=== PATIENT | female | born 1990 | race Caucasian/White ===

== ENCOUNTER 2016-07-26 13:11 | Observation (INO) | payer OTHER ==
[~2016-07-26] VITALS: Ht 162.1 cm; Wt 58.2 kg
--- NOTE | ~2016-07-26 | HP ---
PAT[facility]: [facility] AGE: 26 Y [address] ROOM: [place] [address] LOCATION: GPED ADMIT DATE: 07/26/2016 History & Physical DISCHARGE DATE: FAMILY PHYSICIAN: Amanda Patel MD ATTENDING PHYSICIAN: Amanda Patel DATE OF SERVICE: CHIEF COMPLAINT: Urinary frequency, left-sided low back pain, fevers and chills. HISTORY OF PRESENT ILLNESS: The patient is a 26-year-old female, who presented to clinic on July 25, 2016 with symptoms of urinary frequency and left-sided low back pain. She had also had a low-grade temperature, but no chills at that time. She had had no nausea or vomiting. On exam, she had significant left-sided CVA tenderness. Temperature was 100. UA was markedly abnormal with 100 mg/dL protein, 15 mg/dL ketones, wbc greater than 100, rbc 10 to 20, and epithelial cells 5 to 10. Urine culture was obtained. She was given 1 g of IM Rocephin and started on p.o. Cipro 500 mg p.o. b.i.d. for 7 days. At that visit, she also indicated she had stopped her Synthroid several months ago, so it was restarted at 50 mcg per day, which was her previous dose. She returned to clinic at my request the following day, July 26, for re- examination. She indicated that she was feeling worse. She is now having fever up to 101.8, chills and nausea. No vomiting. She was not able to eat as she did not have much of an appetite. She still has significant left-sided CVA tenderness. PAST MEDICAL HISTORY: Hypothyroidism. PAST SURGICAL HISTORY: Appendectomy. MEDICATIONS: 1. Synthroid 50 mcg daily. 2. Cipro 500 mg p.o. b.i.d. ALLERGIES: NO KNOWN DRUG ALLERGIES. FAMILY HISTORY: Cancer in maternal grandfather and paternal grandfather and uncle. Heart disease on mom's side of the family. Hypertension in maternal grandmother, PATIENT'S NAME: SCOTT LOZANO [facility] AGE: 26 Y [address] ROOM: [place] [address] LOCATION: GPED ADMIT DATE: 07/26/2016 History & Physical DISCHARGE DATE: FAMILY PHYSICIAN: Amanda Patel MD ATTENDING PHYSICIAN: Amanda Patel paternal grandmother, and mother. 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 Denies any alcohol or drug use. She does smoke daily. REVIEW OF SYSTEMS: She admits to fatigue, fevers, chills, and night sweats. Denies any vision changes. She has had headaches, nasal congestion, nasal drainage, and sore throat. Denies any chest pain or shortness of breath. Has had a slight cough. Has had nausea, but no vomiting. Admits to urinary frequency, but denies urgency, dysuria, or urinary retention. Denies any new skin rashes or skin lesions. Denies any altered mental status. Admits to left-sided low back pain. PHYSICAL EXAMINATION: VITAL SIGNS: Blood pressure 122/60 and temperature 101.8. Weight 132 pounds 8 ounces, height 5 feet 5 inches. GENERAL: She is awake, alert, and oriented, but she appears as though she does not feel well. HEART: Regular rate and rhythm without murmur. LUNGS: Clear to auscultation throughout. No crackles or wheezing noted. ABDOMEN: Soft, nondistended. Bowel sounds are auscultated. She is tender to palpation in the suprapubic region. She has left-sided CVA tenderness. EXTREMITIES: No peripheral edema noted. HEENT: Head: Atraumatic, normocephalic. Eyes, conjunctivae clear. Ears: Both TMs visualized; right TM is red and has some bulging superiorly, but the left TM looks normal. No evidence of perforation of either TM. Nares show swollen, erythematous nasal mucosa with drainage bilaterally. No pain to palpation of the sinuses. Mouth: Mucous membranes moist. There is some postnasal drainage and cobblestoning noted on the posterior oropharynx. ASSESSMENT: Left-sided pyelonephritis. Worsening symptoms with attempted outpatient treatment with IM Rocephin and p.o. Cipro. We will admit for IV fluids as well as IV Cipro. We will have Zofran available as needed for nausea and vomiting. We will allow her to eat ad-eliazar. We will have Tylenol and ibuprofen available as needed for pain and fever. MD SHLOMO HOPE/clau PATIENT'S NAME: SCOTT LOZANO [facility] AGE: 26 Y [address] ROOM: [place] [address] LOCATION: ED ADMIT DATE: 07/26/2016 History & Physical DISCHARGE DATE: FAMILY PHYSICIAN: Amanda Patel MD ATTENDING PHYSICIAN: Amanda Patel /[id number] D: [id number] T: [id number] HISTORY & PHYSICAL
--- NOTE | ~2016-07-26 | DS ---
PATIENT'S NAME: SCOTT LOZANO [facility] AGE: 26 Y [address] ROOM: [address] [place], [place] [address] LOCATION: GPED ADMIT DATE: 07/26/2016 Discharge Summary DISCHARGE DATE: 07/28/2016 FAMILY PHYSICIAN: Abby Patel MD ATTENDING PHYSICIAN: Abby Patel ADMISSION DIAGNOSIS: Left-sided pyelonephritis. DISCHARGE DIAGNOSIS: Left-sided pyelonephritis, resolved. HOSPITAL COURSE: The patient is a 26-year-old, female who presented to clinic with left-sided pyelonephritis feeling on outpatient oral Cipro. She was admitted to the hospital on July 26, 2016. She was started on IV fluids and IV Cipro. Over the course of the next 2 days, she improved. Her temperature decreased to normal and she was afebrile for 24 hours prior to discharge. Her white blood cell count decreased to normal. Symptomatically, she is feeling much better and ready for discharge home. DISPOSITION: Discharge to home. DISCHARGE MEDICATIONS: 1. Levothyroxine 50 mcg p.o. daily. 2. Ciprofloxacin 500 mg p.o. b.i.d. for 7 more days. 3. Tylenol 975 mg p.o. every 6 hours p.r.n. pain and fever. FOLLOW UP: She is to follow up with myself at clinic in 2 to 3 weeks. ABBY PATEL MD KB/modl /[id number] d: [id number] t: 09/03/16 1848, DISCHARGE SUMMARY
[2016-07-26] MEDS ORDERED: LEVOTHROID (SY50 MCG PO (14:25)
[2016-07-26] MEDS ORDERED: TYLENOL325 MG PO (14:26)
[2016-07-26] MEDS ORDERED: CIPROFLOXACIN500 M1 PO (14:26)
[2016-07-26 15:18] LABS: BASOPHIL % 0.2 %; EOSINOPHIL % 0.1 %; HEMATOCRIT 40.5 % (33.0-46.0); HEMOGLOBIN 13.7 g/dL (11.0-15.0); IMMATURE GRANULOCYTE # 0.1 K/uL (0.0-0.3); IMMATURE GRANULOCYTE % 0.6 %; LYMPHOCYTE # 1.2 K/uL (0.8-4.0); LYMPHOCYTE % 7.1 %; MCH 32.8 pg (27.0-34.0); MCHC 33.8 gm/dL (32.0-36.5); MCV 96.9 fl (83.0-98.0); MONOCYTE # 1.4 K/uL (0.0-1.0); MONOCYTE % 8.3 %; MPV 8.9 fl (9.4-12.4); NEUTROPHIL # (ANC) 14.3 K/uL (1.8-7.8); NEUTROPHIL % 83.7 %; NRBC % 0 /100WBC (0-0.00); PLATELET COUNT 191 K/uL (150-450); RBC 4.18 M/uL (3.50-5.00); RDW-CV 13.2 % (11.9-14.6)
[2016-07-26 15:42] LABS: ANION GAP 12.5 (10.0-19.0); BLOOD UREA NITROGEN 10 mg/dL (6-24); CALCIUM 8.7 mg/dL (8.5-10.5); CHLORIDE 103 mMol/L (96-110); CO2 25 mMol/L (22-32); CREATININE 0.9 mg/dL (0.5-1.1); ESTIMATED GFR (MDRD EQUATION) > 60; POTASSIUM 3.5 mMol/L (3.7-5.1); SODIUM 137 mMol/L (135-145)
[2016-07-27 05:27] LABS: BASOPHIL % 0.3 %; EOSINOPHIL # 0.1 K/uL (0.0-0.5); HEMOGLOBIN 12.2 g/dL (11.0-15.0); IMMATURE GRANULOCYTE # 0.1 K/uL (0.0-0.3); IMMATURE GRANULOCYTE % 0.8 %; LYMPHOCYTE # 2.1 K/uL (0.8-4.0); LYMPHOCYTE % 15.3 %; MCH 32.8 pg (27.0-34.0); MCHC 33.9 gm/dL (32.0-36.5); MCV 96.8 fl (83.0-98.0); MONOCYTE # 1.4 K/uL (0.0-1.0); MONOCYTE % 10.5 %; MPV 9.2 fl (9.4-12.4); NEUTROPHIL # (ANC) 9.6 K/uL (1.8-7.8); NEUTROPHIL % 72.1 %; NRBC % 0 /100WBC (0-0.00); PLATELET COUNT 168 K/uL (150-450); RBC 3.72 M/uL (3.50-5.00); RDW-CV 13.3 % (11.9-14.6); WBC 13.4 K/uL (4.0-11.0)
[2016-07-27 05:42] LABS: ANION GAP 10.1 (10.0-19.0); BLOOD UREA NITROGEN 8 mg/dL (6-24); CHLORIDE 107 mMol/L (96-110); CO2 26 mMol/L (22-32); CREATININE 0.8 mg/dL (0.5-1.1); ESTIMATED GFR (MDRD EQUATION) > 60; POTASSIUM 4.1 mMol/L (3.7-5.1); SODIUM 139 mMol/L (135-145)
== END 2016-07-28 13:22 | disposition disaster alternative care site (69) ==
LOC: GPED 13:11
PROVIDERS: ADMIT Family Medicine
DX: N12 Tubulo-interstitial nephritis, not specified as acute or chronic (principal); E03.9 Hypothyroidism, unspecified; F17.200 Nicotine dependence, unspecified, uncomplicated; Z79.2 Long term (current) use of antibiotics; Z90.49 Acquired absence of other specified parts of digestive tract; Z79.899 Other long term (current) drug therapy
CPT/HCPCS: J0744; J7030

== ENCOUNTER → 2016-10-12 | Outpatient (CLI) | payer OTHER ==
[~2016-10-12] MED LIST: CIPROFLOXACIN500 M1 PO; LEVOTHROID (SY50 MCG PO; TYLENOL325 MG PO
== END | disposition disaster alternative care site (69) ==
LOC: LKCL 12:18
DX: E03.9 Hypothyroidism, unspecified (principal); Z12.4 Encounter for screening for malignant neoplasm of cervix
CPT/HCPCS: G0145